=== PATIENT | male | born 1955 | race African-American/Black ===

== ENCOUNTER 2018-03-26 14:52 | Emergency (ER) | payer OTHER ==
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
[2018-03-26] MEDS ORDERED: Ibuprofen TAB* 600 MG PO ONE (16:37)
[2018-03-26 17:45] VITALS: BP 124/63
== END 2018-03-26 17:44 | disposition home or self-care (01) ==
LOC: ED 14:52
DX: S02.82XA Fracture of other specified skull and facial bones, left side, initial encounter for closed fracture (principal); S02.2XXA Fracture of nasal bones, initial encounter for closed fracture; Y04.0XXA Assault by unarmed brawl or fight, initial encounter; Y92.9 Unspecified place or not applicable; S09.90XA Unspecified injury of head, initial encounter
CPT/HCPCS: 70450; 70486; 72125; 99282; A9270-GY